=== PATIENT | male | born 1985 | race Native Hawaiian/Other Pacific Islander ===

== ENCOUNTER 2017-03-07 11:09 | Emergency (ER) | payer OTHER ==
[2017-03-07 11:21] VITALS: TEMP 98.5
--- NOTE | 2017-03-07 13:02 | RAD ---
PROCEDURE: Left Thumb radiographs. HISTORY: LEFT THUMB PAIN COMPARISON: None. TECHNIQUE: AP radiograph of the left hand, as well as spot oblique and lateral images of thumb were obtained. FINDINGS: LEFT THUMB: Normal left thumb, without fracture or focal lesion. Remainder of the left hand (as seen on the AP view) grossly unremarkable. JOINTS: Normal. SOFT TISSUES: Normal. OTHER FINDINGS: None. IMPRESSION: Normal left thumb radiographs.
--- NOTE | 2017-03-07 13:06 | C.PDOC ---
History Of Present Illness 31-year-old male, presents to the emergency department with complaints of non- traumatic left thumb pain that is worse with movement since yesterday. Patient states he has to lift and move heavy boxes. Denies numbness/weakness, nausea/ vomiting, fevers, chills or any other associated symptoms. No other complaints at this time. Time Seen by Provider: 03/07/17 11:23 Chief Complaint (Nursing): Finger,Hand,&Wrist History Per: Patient History/Exam Limitations: no limitations Onset/Duration Of Symptoms: Days Current Symptoms Are (Timing): Still Present Severity: Moderate Past Medical History Reviewed: Historical Data, Nursing Documentation, Vital Signs Vital Signs: Last Vital Signs Temp 98.5 F 03/07/17 11:19 Pulse 70 03/07/17 13:16 Resp 16 03/07/17 13:16 BP 132/75 03/07/17 13:16 Pulse Ox 98 03/07/17 13:16 Family History: States: No Known Family Hx - Social History Hx Alcohol Use: No Hx Substance Use: No Review Of Systems Constitutional: Negative for: Fever Respiratory: Negative for: Shortness of Breath Gastrointestinal: Negative for: Vomiting Musculoskeletal: Positive for: Hand Pain (Left thumb) Neurological: Negative for: Weakness, Numbness Physical Exam - Physical Exam Appears: Non-toxic, No Acute Distress Skin: Warm, Dry, No Rash Eye(s): bilateral: Normal Inspection Nose: Normal Oral Mucosa: Moist Lips: Normal Appearing Neck: Normal ROM Extremity: Tenderness, Capillary Refill (<2 sec), No Deformity, Other (mild tenderness at the proximal thumb to palmar aspect. No swelling or deformity) Neurological/Psych: Oriented x3, Normal Speech ED Course And Treatment O2 Sat by Pulse Oximetry: 100 (on RA) Pulse Ox Interpretation: Normal Progress Note: XR L hand/thumb ordered and reviewed. Disposition Counseled Patient/Family Regarding: Diagnosis, Need For Followup, Rx Given - Disposition Referrals: Jed Garcia MD [Staff Provider] - Disposition: HOME/ ROUTINE Disposition Time: 13:05 Condition: STABLE Additional Instructions: REST YOUR THUMB MUCH POSSIBLE USE MEDICATION NEEDED FOLLOW UP WITH HAND SURGEON WITHIN 1 WEEK IF SYMPTOMS PERSIST RETURN TO ER IF SYMPTOMS WORSEN Prescriptions: Naproxen 375 mg PO BID PRN #20 tablet PRN Reason: pain Instructions: Tendinitis (ED) Forms: [employer] (Austrian) Print Language: KINYARWANDA - POA Present On Arrival: None - Clinical Impression Clinical Impression: Thumb tendonitis - Scribe Statement The provider has reviewed the documentation as recorded by the Scribe (Jan Blue) All medical record entries made by the Scribe were at my direction and personally dictated by me. I have reviewed the chart and agree that the record accurately reflects my personal performance of the history, physical exam, medical decision making, and the department course for this patient. I have also personally directed, reviewed, and agree with the discharge instructions and disposition.
[2017-03-07 13:17] VITALS: BP 132/75; PULSE 70; RESP 16
[2017-03-07 14:52] VITALS: O2SAT 100
== END 2017-03-07 13:16 | disposition home or self-care (01) ==
LOC: C.ER 11:09
DX: M77.9 Enthesopathy, unspecified (principal)